=== PATIENT | male | born 1965 | race Caucasian/White ===

== ENCOUNTER → 2017-04-04 | Day surgery (SDC) | payer BC ==
[2017-04-01 12:57] LABS: Basophils # (auto) 0 uL; Basophils % (auto) 0.3 % (0.0-2.0); Eosinophils # (auto) 0.1 uL; Lymphocytes # (auto) 1.2 uL; Mean Corpuscular Hemoglobin 39.1 pg (28.0-32.0); Mean Platelet Volume 8.4 fL (6.9-10.8); Monocytes # (auto) 0 uL; White Blood Cell 2.3 10^3/uL (4.4-10.8)
[2017-04-01 12:59] LABS: Eosinophils % (auto) 4.4 % (0.0-7.0); Hematocrit 28.1 % (41.0-53.0); Hemoglobin 9.3 g/dL (13.5-17.5); Lymphocytes % (auto) 52.9 % (10.0-50.0); Mean Corpuscular Hgb Conc. 33.2 g/dL (32.0-36.0); Mean Corpuscular Volume 117.5 fL (80.0-100.0); Monocytes % (auto) 1.2 % (0.0-12.0); Neutrophils # (auto) 0.9 uL; Neutrophils % (auto) 41.2 % (37.0-80.0); Nucleated Red Blood Cells % 1.4 %; Platelet Count (auto) 57 10^3/uL (140-450); Red Cell Distribution Width 19.6 % (11.8-14.3)
[2017-04-01 13:11] LABS: INR 0.92 (0.9-1.15); Partial Thromboplastin Time 23.6 sec (22.64-33.71)
[2017-04-01 13:29] LABS: Anisocytosis Slight; Macrocytosis Marked; Platelet Estimate Decreased
[~2017-04-04] VITALS: Ht 193 cm; Wt 117.9 kg
[~2017-04-04] MED LIST: ASPI81TA27 PO; ATEN-60 PO; LOSA25TA8 PO; METF-370 PO; SODIUM CHLORIDE LOCK 10 ML ONE; diphenhdrAMINE HCL 50 MG/1 ML VL ONE
[2017-04-04] MEDS: fentaNYL CITRATE 100 MCG/2 ML VL ONE ×3 (09:23→09:29)
[2017-04-04] MEDS: MIDAZOLAM HCL 5 MG/ML-1ML VIAL ONE ×3 (09:23→09:29)
[2017-04-04 10:31] VITALS: BP 122/88
== END | disposition home or self-care (01) ==
LOC: GI 08:16
PROVIDERS: ATTEND Internal Medicine Gastroenterology
DX: D12.3 Benign neoplasm of transverse colon (principal); K57.30 Diverticulosis of large intestine without perforation or abscess without bleeding; Z88.1 Allergy status to other antibiotic agents; E11.9 Type 2 diabetes mellitus without complications; D69.6 Thrombocytopenia, unspecified; I10 Essential (primary) hypertension
CPT/HCPCS: 36415; 45385; 82962; 85025; 85610; 85730; 88305; J1200; J2250; J3010; J7030